=== PATIENT | male | born 1925 | race Caucasian/White ===

== ENCOUNTER 2016-11-13 14:15 | Inpatient (IN) | payer OTHER ==
[~2016-11-13] VITALS: Ht 162.6 cm; Wt 58.9 kg
--- NOTE | 2016-11-13 15:42 | DIAGNOSTIC IMAGING REPORT ---
CHEST ONE VIEW PORTABLE CLINICAL HISTORY: weakness dyspnea COMPARISON STUDY: None FINDINGS: Small parenchymal infiltrate right base. Prominent hilar fullness bilaterally most likely secondary to central pulmonary vasculature. Underlying emphysematous change. IMPRESSION: Emphysematous change. Small parenchymal infiltrate right base. Probable pulmonary hypertension. Electronically signed by: Farhat Coronado M.D. 11/13/2016 3:41 PM Dictated Date/Time: 11/13/2016 3:40 PM
[2016-11-13 15:50] LABS: BASO % 0.1 %; BASO ABS # 0.02 K/uL (0-0.2); COMPLETE YES; HEMATOCRIT 36.6 % (42-52); IG% 0.4 %; LYMPH % 6.5 %; LYMPH ABS # 1.16 K/uL (1.2-3.4); MEAN CELL VOLUME 90.6 fL (80-100); MEAN CORPUSCULAR HEMOGLOBIN 31.7 pg (25-34); MEAN PLATELET VOLUME 12.4 fL (7.4-10.4); MONO % 7.6 %; NEUT % 85.4 %; PLATELET COUNT 236 K/uL (130-400); RED BLOOD COUNT 4.04 M/uL (4.7-6.1); WHITE BLOOD COUNT 17.72 K/uL (4.8-10.8)
[2016-11-13] MEDS ORDERED: SODIUM CHLORIDE 0.9% 1000ML 2,000 ML IV ONE (16:00)
--- NOTE | 2016-11-13 16:00 | EMERGENCY ROOM VISIT NOTE ---
History Report prepared by Hector: Eric Godfrey Under the Supervision of: Dr. Ismael George M.D. First contact with patient: 15:37 Chief Complaint: WEAKNESS Stated Complaint: WEAK, BREATHING TROUBLE History of Present Illness The patient is an 89 year old male who presents to the Emergency Room with complaints of constant global weakness beginning several days prior to arrival. He associates a fever, productive cough, and a decreased appetite with today's symptoms. As per neighbors, the patient's sons wanted him to be brought into the ED for evaluation. The neighbors state they help take care of the patient along with other help at the patient's home. She states the patient has had difficulty wanting to eat the past several days. She notes the patient has been urinating and moving his bowels with the intake of a daily stool softener. The neighbor states the patient experienced a fever of 100.9 F earlier today. 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 Review of Systems All systems have been listed, reviewed, and are negative other than those previously mentioned. Please see Additional Medical History Sheet. Past Medical & Surgical Medical Problems: (1) Asthma (2) Bronchitis (3) Confusion (4) Pneumonia (5) Sepsis (6) Urinary problem Family History Patient reports no known family medical history. Social History Smoking Status: Never Smoker Alcohol Use: none Housing Status: lives alone Occupation Status: retired Current/Historical Medications Scheduled B-Complex W/ Folic Acid (Super B Complex Maxi), 1 TAB PO DAILY Budesonide/Formoterol Fumarate (Symbicort 160/4.5 Inhaler), 1 PUFF INH BID Cholecalciferol (Vitamin D 1000 Unit), 1,000 INTER.UNIT PO DAILY Docusate Sodium (Colace), 1 CAP PO QPM Fish Oil ([place]-3), 1 CAP PO DAILY Fluticasone Propionate (Fluticasone Propionate), 1 SPRAY GE DAILY Levothyroxine Sodium (Synthroid), 100 MCG PO DAILY Multivitamins/Minerals (Mvi With Minerals), 1 TAB PO DAILY Tamsulosin HCl (Tamsulosin HCl), 4 MG PO DAILY Theophylline Cont Rel (Uniphyl Controlled Rel), 400 MG PO BID Allergies Coded Allergies: Aspirin (Verified Allergy, Unknown, UNKNOWN, 11/13/16) Physical Exam Vital Signs Date Time Temp Pulse Resp B/P Pulse Ox O2 Delivery O2 Flow Rate FiO2 11/13/16 20:15 37.0 92 20 150/78 93 Nasal Cannula 2.0 11/13/16 19:58 106 26 137/108 94 Nasal Cannula 2.0 11/13/16 19:18 94 Nasal Cannula 2.0 11/13/16 19:00 89 Room Air 11/13/16 17:59 136/75 11/13/16 17:45 105 25 96 11/13/16 17:29 156/74 11/13/16 17:15 93 23 93 11/13/16 17:00 152/85 11/13/16 16:47 169/82 11/13/16 16:46 94 18 169/82 95 11/13/16 16:45 86 28 96 11/13/16 16:38 85 11/13/16 14:18 37.2 97 20 149/75 97 Room Air Physical Exam GENERAL: Patient awake, alert, oriented x 3. Patient follows commands. SKIN: No erythema, pallor, cyanosis or rash HEENT: Normal head, pupils equal, reactive to light and accommodation. Ears normal. Oral cavity has dentures in place and posterior pharynx appears normal. Neck: Without adenopathy, no neck vein distention. LUNGS: Clear to auscultation. No wheezes, no rales, no rhonchi. HEART: Muffled heart tones. No murmurs. No gallops. No rubs ABDOMEN: No masses, no rebound, no hepatomegaly or splenomegaly. EXTREMITIES: 2+ pitting pretibial edema. No signs of trauma. No calf or thigh tenderness. NEUROLOGIC: Cranial nerves II-XII within normal limits. No gross motor sensory function deficits. Medical Decision & Procedures ER Provider Diagnostic Interpretation: X ray results are stated below per my interpretation and the radiologist's interpretation. CHEST ONE VIEW PORTABLE CLINICAL HISTORY: weakness dyspnea COMPARISON STUDY: None FINDINGS: Small parenchymal infiltrate right base. Prominent hilar fullness bilaterally most likely secondary to central pulmonary vasculature. Underlying emphysematous change. IMPRESSION: Emphysematous change. Small parenchymal infiltrate right base. Probable pulmonary hypertension. Electronically signed by: Farhat Coronado M.D. 11/13/2016 3:41 PM Laboratory Results 2/23/17 15:35 Red Blood Count 4.04, Mean Corpuscular Volume 90.6, Mean Corpuscular Hemoglobin 31.7, Mean Corpuscular Hemoglobin Concent 35.0, Mean Platelet Volume 12.4, Neutrophils (%) (Auto) 85.4, Lymphocytes (%) (Auto) 6.5, Monocytes (%) (Auto) 7.6, Eosinophils (%) (Auto) 0.0, Basophils (%) (Auto) 0.1, Neutrophils # (Auto) 15.12, Lymphocytes # (Auto) 1.16, Monocytes # (Auto) 1.35, Eosinophils # (Auto) 0.00, Basophils # (Auto) 0.02 11/13/16 15:35 Test 11/13/16 15:35 11/13/16 16:25 White Blood Count 17.72 K/uL (4.8-10.8) Red Blood Count 4.04 M/uL (4.7-6.1) Hemoglobin 12.8 g/dL (14.0-18.0) Hematocrit 36.6 % (42-52) Mean Corpuscular Volume 90.6 fL (80-100) Mean Corpuscular Hemoglobin 31.7 pg (25-34) Mean Corpuscular Hemoglobin Concent 35.0 g/dl (32-36) Platelet Count 236 K/uL (130-400) Mean Platelet Volume 12.4 fL (7.4-10.4) Neutrophils (%) (Auto) 85.4 % Lymphocytes (%) (Auto) 6.5 % Monocytes (%) (Auto) 7.6 % Eosinophils (%) (Auto) 0.0 % Basophils (%) (Auto) 0.1 % Neutrophils # (Auto) 15.12 K/uL (1.4-6.5) Lymphocytes # (Auto) 1.16 K/uL (1.2-3.4) Monocytes # (Auto) 1.35 K/uL (0.11-0.59) Eosinophils # (Auto) 0.00 K/uL (0-0.5) Basophils # (Auto) 0.02 K/uL (0-0.2) RDW Standard Deviation 46.7 fL (36.4-46.3) RDW Coefficient of Variation 14.0 % (11.5-14.5) Immature Granulocyte % (Auto) 0.4 % Immature Granulocyte # (Auto) 0.07 K/uL (0.00-0.02) Prothrombin Time 10.7 SECONDS (9.0-12.0) Prothromb Time International Ratio 1.0 (0.9-1.1) Activated Partial Thromboplast Time 34.4 SECONDS (21.0-31.0) Partial Thromboplastin Ratio 1.3 Anion Gap 11.0 mmol/L (3-11) Est Creatinine Clear Calc Drug Dose 49.4 ml/min Estimated GFR () 89.5 Estimated GFR (Non- 77.3 BUN/Creatinine Ratio 15.4 (10-20) Calcium Level 9.3 mg/dl (8.5-10.1) Total Bilirubin 1.2 mg/dl (0.2-1) Aspartate Amino Transf (AST/SGOT) 95 U/L (15-37) Alanine Aminotransferase (ALT/SGPT) 59 U/L (12-78) Alkaline Phosphatase 80 U/L (45-117) Total Creatine Kinase 35 U/L (39-308) Creatine Kinase MB 0.6 ng/ml (0.5-3.6) Creatine Kinase MB Ratio 1.7 (0-3.0) Troponin I 0.023 ng/ml (0-0.045) Total Protein 8.0 gm/dl (6.4-8.2) Albumin 3.0 gm/dl (3.4-5.0) Globulin 5.0 gm/dl (2.5-4.0) Albumin/Globulin Ratio 0.6 (0.9-2) Thyroid Stimulating Hormone (TSH) 4.940 uIu/ml (0.300-4.500) Bedside Lactic Acid Venous 1.28 mmol/L (0.90-1.70) Date/Time Source Procedure Growth Status 11/13/16 20:15 Nasal MRSA DNA Surveillance Screen - Final Specimen Negative for MRSA by DNA Probe Complete Laboratory results as stated above per my review. Medications Administered Medications (Trade) Dose Ordered Sig/Raciel Route Start Time Stop Time Status Last Admin Dose Admin Sodium Chloride (Nss 1000ml) 2,000 ml @ 1,000 mls/hr Q2H ONCE IV 11/13/16 16:00 11/13/16 17:59 DC 11/13/16 16:40 1,000 MLS/HR Levofloxacin (Levaquin / D5W) 750 mg NOW ONCE IV 11/13/16 16:15 11/13/16 16:16 DC 11/13/16 16:42 750 MG Piperacillin Sod/ Tazobactam Sod (Zosyn Iv) 4.5 gm NOW STAT IV 11/13/16 16:44 11/13/16 16:45 DC 11/13/16 16:49 4.5 GM Albuterol/ Ipratropium (Duoneb) 3 ml QIDR INH 11/13/16 20:00 12/13/16 19:59 11/13/16 21:00 3 ML ECG Indication: weakness Rate (beats per minute): 100 Rhythm: sinus rhythm Findings: PAC, no acute ischemic change, other (normal axis) ED Course 1553: Past medical records reviewed. The patient was evaluated in room A5. A complete history and physical examination was performed. 1600: Ordered Sodium Chloride 2,000 ml @ 1,000 mls/hr IV. 1602: Ordered Rocephin Inj 1 gm IV. 1615: Ordered Levofloxacin 750 mg IV. 1644: Ordered Zosyn Iv 4.5 gm IV. 1645: I spoke to LARISSA Hinton (Hospitalist) about the patient's case, and he will follow the patient for further evaluation. Medical Decision Nurses notes reviewed. Medical history sheet reviewed. Differential diagnosis includes but is not limited to: pneumonia, congestive heart failure, sepsis, neoplastic disease. Multiple labs, EKG and imaging were obtained. Please see above. The patient has right lower lobe infiltrate. White count is elevated. Lactic acid is not elevated the patient was started on high dose fluids for presumed sepsis. The patient was given IV antibiotics following blood cultures. The patient will obviously require further evaluation in the hospital. I discussed care with the patient, friends and the hospitalist. Consults Time Called: 1642 Consulting Physician: LARISSA Hinton (Hospitalist) Returned Call: 1644 I spoke to LARISSA Hinton (Hospitalist) about the patient's case, and he will follow the patient for further evaluation. Impression Primary Impression: Pneumonia Additional Impression: Hypokalemia Scribe Attestation The scribe's documentation has been prepared under my direction and personally reviewed by me in its entirety. I confirm that the note above accurately reflects all work, treatment, procedures, and medical decision making performed by me. Departure Information Dispostion Being Evaluated By Hospitalist (Dr. Licona, [facility] [place] (Hospitalist)) Referrals No Doctor, Assigned (PCP) Problem Qualifiers
[2016-11-13] MEDS ORDERED: CEFTRIAXONE SOD INJ 1 GM ADDVIAL IV STA (16:02)
[2016-11-13 16:07] LABS: BUN/CREATININE RATIO 15.4 (10-20); CALCIUM 9.3 mg/dl (8.5-10.1); CREATININE 0.85 mg/dl (0.60-1.40); POTASSIUM 3.2 mmol/L (3.5-5.1)
[2016-11-13] MEDS ORDERED: LEVAQUIN 750MG / 150ML D5W IV ONE (16:15)
[2016-11-13 16:17] LABS: ALB/GLOB RATIO 0.6 (0.9-2); CKMB/CK RATIO 1.7 (0-3.0); THYROID STIMULATING HORMONE 4.94 uIu/ml (0.300-4.500)
[2016-11-13] MEDS ORDERED: PIPERACILLIN/TAZOBACTAM 4.5 GM/100ML D5W IV STA (16:44)
[2016-11-13] MEDS ORDERED: FLNIN/ NAE (16:52)
[2016-11-13] MEDS ORDERED: FLM4 PO (16:52)
[2016-11-13] MEDS ORDERED: SYN100 PO (16:52)
[2016-11-13] MEDS ORDERED: THEO400T9 PO (16:52)
[2016-11-13] MEDS ORDERED: MULT-513 PO (16:53)
[2016-11-13] MEDS ORDERED: DOCU-94 PO (16:53)
[2016-11-13] MEDS ORDERED: CHOL100027 PO (16:53)
[2016-11-13] MEDS ORDERED: OMEG10007 PO (16:53)
[2016-11-13] MEDS ORDERED: B-CO-25 PO (16:53)
[2016-11-13] MEDS ORDERED: SYMIN160 INH (16:53)
--- NOTE | 2016-11-13 16:57 | History and Physical ---
History & Physical Date & Time of Service: Nov 13, 2016 at 16:54 Chief Complaint: Weak, Breathing Trouble Primary Care Physician: Allen Mcbride History of Present Illness Source: patient 89M with a PMHx of Asthma, Pneumonia, BPH presents to the ER for a 3 day history of lethargy and confusion. Patient was brought in by his neighbors who check on him several times per day, pt normally lives by himself. Neighbors are present at bedside and state that the pt has been getting more confused over the past 3 days. Patients gets twice daily home care. In the exam room the patient was unable to identify the correct city, year, name of the hospital or his birthday. Pt complained of generalized weakness and cough. Denies being in any pain. Thinks he is in the hospital, cannot name the hospital, is here to "get better", ROS: Denies fever, denies SOB, denies chest pain, denies increased urinary frequency. Allergies: Aspirin Meds: Brought in with a list, pt also take a Cranberry juice mixture that according to him helps keep his asthma under control. SHx: Lives by himself, two daughters in [facility], and 2 sons, one in [place]. Past Medical/Surgical History Medical Problems: (1) Asthma Status: Chronic (2) Bronchitis Status: Resolved (3) Pneumonia Status: Resolved (4) Urinary problem Status: Chronic Social History Smoking Status: Never Smoker Occupational Status: retired Allergies Coded Allergies: Aspirin (Verified Allergy, Unknown, UNKNOWN, 11/13/16) Home Medications Scheduled B-Complex W/ Folic Acid (Super B Complex Maxi), 1 TAB PO DAILY Budesonide/Formoterol Fumarate (Symbicort 160/4.5 Inhaler), 1 PUFF INH BID Cholecalciferol (Vitamin D 1000 Unit), 1,000 INTER.UNIT PO DAILY Docusate Sodium (Colace), 1 CAP PO QPM Fish Oil ([place]-3), 1 CAP PO DAILY Fluticasone Propionate (Fluticasone Propionate), 1 SPRAY GE DAILY Levothyroxine Sodium (Synthroid), 100 MCG PO DAILY Multivitamins/Minerals (Mvi With Minerals), 1 TAB PO DAILY Tamsulosin HCl (Tamsulosin HCl), 4 MG PO DAILY Theophylline Cont Rel (Uniphyl Controlled Rel), 400 MG PO BID Physical Exam Vital Signs Date Time Temp Pulse Resp B/P Pulse Ox O2 Delivery O2 Flow Rate FiO2 11/13/16 16:46 94 18 169/82 95 11/13/16 16:38 85 11/13/16 14:18 37.2 97 20 149/75 97 Room Air General Appearance: WD/WN, no apparent distress Head: normocephalic Eyes: normal inspection Neck: supple Respiratory/Chest: chest non-tender, lungs clear, normal breath sounds, + pertinent finding (slight crackles over posterior lung fitzgerald, no wheezing) Cardiovascular: regular rate, rhythm, no edema, no gallop, no JVD, no murmur Abdomen/GI: normal bowel sounds, non tender, soft, + pertinent finding (scar on midline of abdomen) Back: no CVA tenderness Extremities/Musculoskelatal: normal inspection, no calf tenderness, normal capillary refill Neurologic/Psych: alert, normal mood/affect, normal reflexes, + pertinent finding (Patient is not oriented to time (year), or place. Is oriented to person, but not his birthday. Pt cannot remmeber who the president is. ) Skin: warm/dry, no rash Diagnostics Laboratory Results Results Past 24 Hours Test 11/13/16 15:35 11/13/16 16:25 Range/Units White Blood Count 17.72 4.8-10.8 K/uL Red Blood Count 4.04 4.7-6.1 M/uL Hemoglobin 12.8 14.0-18.0 g/dL Hematocrit 36.6 42-52 % Mean Corpuscular Volume 90.6 80-100 fL Mean Corpuscular Hemoglobin 31.7 25-34 pg Mean Corpuscular Hemoglobin Concent 35.0 32-36 g/dl Platelet Count 236 130-400 K/uL Mean Platelet Volume 12.4 7.4-10.4 fL Neutrophils (%) (Auto) 85.4 % Lymphocytes (%) (Auto) 6.5 % Monocytes (%) (Auto) 7.6 % Eosinophils (%) (Auto) 0.0 % Basophils (%) (Auto) 0.1 % Neutrophils # (Auto) 15.12 1.4-6.5 K/uL Lymphocytes # (Auto) 1.16 1.2-3.4 K/uL Monocytes # (Auto) 1.35 0.11-0.59 K/uL Eosinophils # (Auto) 0.00 0-0.5 K/uL Basophils # (Auto) 0.02 0-0.2 K/uL RDW Standard Deviation 46.7 36.4-46.3 fL RDW Coefficient of Variation 14.0 11.5-14.5 % Immature Granulocyte % (Auto) 0.4 % Immature Granulocyte # (Auto) 0.07 0.00-0.02 K/uL Sodium Level 136 136-145 mmol/L Potassium Level 3.2 3.5-5.1 mmol/L Chloride Level 100 98-107 mmol/L Carbon Dioxide Level 25 21-32 mmol/L Anion Gap 11.0 3-11 mmol/L Blood Urea Nitrogen 13 7-18 mg/dl Creatinine 0.85 0.60-1.40 mg/dl Est Creatinine Clear Calc Drug Dose 49.4 ml/min Estimated GFR () 89.5 Estimated GFR (Non- 77.3 BUN/Creatinine Ratio 15.4 10-20 Random Glucose 119 70-99 mg/dl Calcium Level 9.3 8.5-10.1 mg/dl Total Bilirubin 1.2 0.2-1 mg/dl Aspartate Amino Transf (AST/SGOT) 95 15-37 U/L Alanine Aminotransferase (ALT/SGPT) 59 12-78 U/L Alkaline Phosphatase 80 45-117 U/L Total Creatine Kinase 35 39-308 U/L Creatine Kinase MB 0.6 0.5-3.6 ng/ml Creatine Kinase MB Ratio 1.7 0-3.0 Troponin I 0.023 0-0.045 ng/ml Total Protein 8.0 6.4-8.2 gm/dl Albumin 3.0 3.4-5.0 gm/dl Globulin 5.0 2.5-4.0 gm/dl Albumin/Globulin Ratio 0.6 0.9-2 Thyroid Stimulating Hormone (TSH) 4.940 0.300-4.500 uIu/ml Bedside Lactic Acid Venous 1.28 0.90-1.70 mmol/L Microbiology Results 11/13/16 Blood Culture, Received Pending 11/13/16 Blood Culture, Received Pending Diagnostic Radiology CHEST ONE VIEW PORTABLE CLINICAL HISTORY: weakness dyspnea COMPARISON STUDY: None FINDINGS: Small parenchymal infiltrate right base. Prominent hilar fullness bilaterally most likely secondary to central pulmonary vasculature. Underlying emphysematous change. IMPRESSION: Emphysematous change. Small parenchymal infiltrate right base. Probable pulmonary hypertension. Impression Assessment and Plan 89M with a PMHx of bronchitis, pneumonia, hematuria was brought in by his neighbors for a 3 day history of lethargy and weakness. Patient is likely septic on admission with AMS and elevated WBC. Patient is confused - cannot name city, hospital name or year. Lactic Acid is WNL, will repeat x 2. Possible sepsis from Pneumonia r/o UTI - Pt has a history of Asthma and Pneumonia. O2 sats in the high 80s-low 90s at bedside. - Check UA stat. - Blood cultures Pending - Abx: Zosyn and Azithromycin IV - Repeat Lactic Acid x 2, CBC and BMP tomorrow + Mg. - NSS + 20meq KCL @ 100mls/hr - Respiratory: Duonebs and Symbacort, and O2 per protocol. Low Potassium (3.2) - NSS + 20meq KCL @ 100mls/hr + 20meq KCL once. Continue to monitor. Hypothyroid - TSH elevated, may be sick euthyroid syndrome. - c/w Levo 100mcg daily. - Recheck as outpatient. BPH: Continue with Tamsulosin 0.4mg QAM. Unable to assess if patient can urinate on his own, pt states he is able to ambulate to bathroom. Consider loza. DVT Proph: Lovenox SQ daily. Dispo: Med Surg, son is driving up from [place], will be here Thursday, Regular Diet, FULL CODE Resident Physician Supervision Note: I interviewed and examined the patient. Discussed with Dr. Licona and agree with findings and plan as documented in the note. Any exceptions or clarifications are listed here: None Documented By: Darnell Chase confused. denies any complaints. after d/w R1, caregiver/neighbors are able to give me a little more information about baseline - baseline is some dementia - but not bad - able to care for self with them helping some and looking after himself - but doesn't forget meals, doesn't wander off, lives alone with help. shoveling snow 2wks ago - give a picture of ?mild dementia - note that this current state is way off from baseline vitals noted, bibasilar rales, diminished air entry bases. upper clear. no edema CXR noted labs noted confusion - appearing to be likely septic encephalopathy superimposed on baseline ?mild dementia -- encephalopathy due to community acquired pneumonia -zithromax rocephin, supportive care -PT/OT - discussed current situation w caregivers and explained that deliriums rarely improve in line with the inciting illness - that he's quite likely to need time at SNF or rehab prior to being able to get back home elevated TSH -outpt f/u otherwise as above Resident Involvement: Resident Care Provided Care Provided: Adult Hospital Medicine
[2016-11-13] MEDS ORDERED: ACETAMINOPHEN 325 MG TAB PO PRN (17:30)
[2016-11-13] MEDS ORDERED: MAGNESIUM HYDROXIDE SUSP 30 ML UDC PO PRN (17:30)
[2016-11-13] MEDS ORDERED: ONDANSETRON INJ 2 MG/ML 2 ML VIAL IV PRN (17:30)
[2016-11-13] MEDS ORDERED: ALUMINUM/MAGNESIUM/SIMETH (MAALOX MAX) 30 ML UDC PO PRN (17:30)
[2016-11-13] MEDS ORDERED: ALBUT/IPRATROP 3MG/0.5MG NEB 3 ML VIAL INH PRN (17:30)
[2016-11-13 20:15] VITALS: BP 150/78; PULSE 92; TEMP 37; O2SAT 93; Ht 162.6 cm; Wt 58.9 kg
[2016-11-13] MEDS ORDERED: AMPICILLIN/SULBACTAM SOD INJ 3,000 MG in SODIUM CHLORIDE 0.9% 100ML 100 ML IV SCH (21:00)
[2016-11-13] MEDS: ALBUT/IPRATROP 3MG/0.5MG NEB 3 ML VIAL INH SCH (21:00)
[2016-11-13] MEDS ORDERED: POTASSIUM CHLORIDE 10 MEQ TABCR PO ONE (21:00)
[2016-11-13 21:11] VITALS: PULSE 66; O2SAT 93
[2016-11-13 21:45] LABS: PARTIAL THROMBOPLASTIN RATIO 1.3; PROTHROMBIN TIME (PATIENT) 10.7 SECONDS (9.0-12.0)
[2016-11-13] MEDS: NSS + 20MEQ KCL 1000ML 1,000 ML IV SCH (21:47)
[2016-11-13] MEDS: THEOPHYLLINE 400MG CONTROLLED REL TAB PO SCH (21:48)
[2016-11-13] MEDS: DOCUSATE SODIUM 100 MG CAP PO SCH (21:48)
[2016-11-13] MEDS: BUDESONIDE/FORMOTEROL FUMARATE 160/4.5 60 PUFFS/INHALER INH SCH (21:48)
[2016-11-13] MEDS: ENOXAPARIN 30 MG/0.3 ML SYR SQ SCH (22:58)
[2016-11-13] MEDS: AZITHROMYCIN IV 500 MG in DEXTROSE 5% 250ML 250 ML IV SCH (22:58)
[2016-11-13 23:08] LABS: URINE APPEARANCE CLEAR (CLEAR); URINE BILIRUBIN NEG (NEG); URINE COLOR YELLOW; URINE NITRITE NEG (NEG); URINE PH 6.5 (4.5-7.5); URINE SPECIFIC GRAVITY 1.016 (1.000-1.030); UROBILINOGEN NEG (NEG); ZZUR CULT IF INDIC CLEAN CATCH NO
[2016-11-13 23:10] LABS: MANUAL MICROSCOPIC REQUIRED? NO; REVIEW REQ? NO
[2016-11-14] VITALS (9 sets, daily range): BP systolic 126–151; BP diastolic 66–78; PULSE 81–106; TEMP 36.4–36.9; O2SAT 92–98
[2016-11-14] MEDS: CEFTRIAXONE SOD INJ 1,000 MG in DEXTROSE 5% 50ML 50 ML IV SCH ×2 (00:42→23:50)
[2016-11-14] MEDS: LEVOTHYROXINE 100 MCG TAB PO SCH (05:52)
[2016-11-14 06:13] LABS: HEMATOCRIT 34.7 % (42-52); MEAN CELL VOLUME 92.3 fL (80-100); MEAN CORPUSCULAR HEMOGLOBIN 31.4 pg (25-34); MEAN PLATELET VOLUME 11.9 fL (7.4-10.4); PLATELET COUNT 215 K/uL (130-400); RED BLOOD COUNT 3.76 M/uL (4.7-6.1); WHITE BLOOD COUNT 15.68 K/uL (4.8-10.8)
[2016-11-14 06:50] LABS: BUN/CREATININE RATIO 11.8 (10-20); CALCIUM 8.1 mg/dl (8.5-10.1); CREATININE 0.61 mg/dl (0.60-1.40); POTASSIUM 2.9 mmol/L (3.5-5.1)
[2016-11-14 06:54] LABS: ALB/GLOB RATIO 0.6 (0.9-2)
[2016-11-14] MEDS: ALBUT/IPRATROP 3MG/0.5MG NEB 3 ML VIAL INH SCH ×4 (07:23→20:00)
[2016-11-14] MEDS: NSS + 20MEQ KCL 1000ML 1,000 ML IV SCH (07:58)
[2016-11-14] MEDS ORDERED: POTASSIUM CHLORIDE 10 MEQ TABCR PO ONE (08:00)
--- NOTE | 2016-11-14 08:05 | Hospitalist Progress Note ---
Hospitalist Progress Note Date of Service Nov 14, 2016. (Manda Dunham PA-C) Subjective Pt evaluation today including: conversation w/ patient, conversation w/ family , physical exam, chart review, lab review, review of studies, review of inpatient medication list PO Intake: Good Voiding: loza catheter in place The patient was seen and examined this morning. His son is present at bedside today. The patient reports he feels ok this morning, eating breakfast at bedside. He denies any acute or new complaints. Pt notes chronic runny nose and mild lower abdominal pain but that this is not new and he is not concerned with it. He denies fever, chills, sweats, cp, sob, diarrhea, last BM was yesterday, no dysuria or hematuria. Pt son provides large amount of information this morning. States he is concerned the patient has a bit of sundowning, with frequently up at night walking/roaming his house (as he's noticed this when stays there overnight). The patient lives at home alone, has 3.5 workers during the day on separate shifts, but doesn't have caregivers with him overnight,. He ambulates without assistance, and normally doesn't need supplemental O2. All Other Systems: Reviewed and Negative (other than listed above. ) (Manda Dunham, RAMON) Objective Vital Signs Date Time Temp Pulse Resp B/P Pulse Ox O2 Delivery O2 Flow Rate FiO2 11/14/16 07:37 36.4 86 16 151/76 94 11/14/16 07:25 81 16 96 Room Air 11/14/16 00:00 36.5 95 18 132/78 92 Room Air 11/13/16 21:11 66 16 93 Nasal Cannula 2.0 11/13/16 20:15 37.0 92 20 150/78 93 Nasal Cannula 2.0 11/13/16 19:58 106 26 137/108 94 Nasal Cannula 2.0 11/13/16 19:18 94 Nasal Cannula 2.0 11/13/16 19:00 89 Room Air 11/13/16 17:59 136/75 11/13/16 17:45 105 25 96 11/13/16 17:29 156/74 11/13/16 17:15 93 23 93 11/13/16 17:00 152/85 11/13/16 16:47 169/82 11/13/16 16:46 94 18 169/82 95 11/13/16 16:45 86 28 96 11/13/16 16:38 85 11/13/16 14:18 37.2 97 20 149/75 97 Room Air (Manda Dunham PA-C) Physical Exam General Appearance: WD/WN, no apparent distress, + thin, + pertinent finding ( sitting up eating breakfast without difficulty) Eyes: PERRL, EOMI ENT: hearing grossly normal, pharynx normal Neck: supple, no JVD Respiratory/Chest: normal breath sounds, no respiratory distress, no accessory muscle use, + pertinent finding (no crackles or wheezing) Cardiovascular: regular rate, rhythm, no murmur Abdomen: normal bowel sounds, soft, + pertinent finding (+ mild tenderness in the LLQ with deep palpation.) Extremities: non-tender, + pedal edema, + pertinent finding (+ multiple excoriations present over bilateral LE) Neurologic/Psychiatric: alert, + pertinent finding (oriented to self, but not place or time.) Skin: normal color, warm/dry (Manda Dunham PA-C) Laboratory Results Last 24 Hours Test 11/13/16 15:35 11/13/16 16:25 11/13/16 20:40 11/13/16 22:00 White Blood Count 17.72 K/uL Red Blood Count 4.04 M/uL Hemoglobin 12.8 g/dL Hematocrit 36.6 % Mean Corpuscular Volume 90.6 fL Mean Corpuscular Hemoglobin 31.7 pg Mean Corpuscular Hemoglobin Concent 35.0 g/dl Platelet Count 236 K/uL Mean Platelet Volume 12.4 fL Neutrophils (%) (Auto) 85.4 % Lymphocytes (%) (Auto) 6.5 % Monocytes (%) (Auto) 7.6 % Eosinophils (%) (Auto) 0.0 % Basophils (%) (Auto) 0.1 % Neutrophils # (Auto) 15.12 K/uL Lymphocytes # (Auto) 1.16 K/uL Monocytes # (Auto) 1.35 K/uL Eosinophils # (Auto) 0.00 K/uL Basophils # (Auto) 0.02 K/uL RDW Standard Deviation 46.7 fL RDW Coefficient of Variation 14.0 % Immature Granulocyte % (Auto) 0.4 % Immature Granulocyte # (Auto) 0.07 K/uL Prothrombin Time 10.7 SECONDS Prothromb Time International Ratio 1.0 Activated Partial Thromboplast Time 34.4 SECONDS Partial Thromboplastin Ratio 1.3 Sodium Level 136 mmol/L Potassium Level 3.2 mmol/L Chloride Level 100 mmol/L Carbon Dioxide Level 25 mmol/L Anion Gap 11.0 mmol/L Blood Urea Nitrogen 13 mg/dl Creatinine 0.85 mg/dl Est Creatinine Clear Calc Drug Dose 49.4 ml/min Estimated GFR () 89.5 Estimated GFR (Non- 77.3 BUN/Creatinine Ratio 15.4 Random Glucose 119 mg/dl Calcium Level 9.3 mg/dl Total Bilirubin 1.2 mg/dl Aspartate Amino Transf (AST/SGOT) 95 U/L Alanine Aminotransferase (ALT/SGPT) 59 U/L Alkaline Phosphatase 80 U/L Total Creatine Kinase 35 U/L Creatine Kinase MB 0.6 ng/ml Creatine Kinase MB Ratio 1.7 Troponin I 0.023 ng/ml Total Protein 8.0 gm/dl Albumin 3.0 gm/dl Globulin 5.0 gm/dl Albumin/Globulin Ratio 0.6 Thyroid Stimulating Hormone (TSH) 4.940 uIu/ml Bedside Lactic Acid Venous 1.28 mmol/L Lactic Acid Level 0.9 mmol/L Urine Color YELLOW Urine Appearance CLEAR Urine pH 6.5 Urine Specific [place] 1.016 Urine Protein 1+ Urine Glucose (UA) NEG Urine Ketones NEG Urine Occult Blood NEG Urine Nitrite NEG Urine Bilirubin NEG Urine Urobilinogen NEG Urine Leukocyte Esterase NEG Urine WBC (Auto) 1-5 /hpf Urine RBC (Auto) 0-4 /hpf Urine Hyaline Casts (Auto) 1-5 /lpf Urine Epithelial Cells (Auto) 10-20 /lpf Urine Bacteria (Auto) NEG Test 11/14/16 06:06 White Blood Count 15.68 K/uL Red Blood Count 3.76 M/uL Hemoglobin 11.8 g/dL Hematocrit 34.7 % Mean Corpuscular Volume 92.3 fL Mean Corpuscular Hemoglobin 31.4 pg Mean Corpuscular Hemoglobin Concent 34.0 g/dl RDW Standard Deviation 46.9 fL RDW Coefficient of Variation 13.9 % Platelet Count 215 K/uL Mean Platelet Volume 11.9 fL Sodium Level 138 mmol/L Potassium Level 2.9 mmol/L Chloride Level 105 mmol/L Carbon Dioxide Level 25 mmol/L Anion Gap 8.0 mmol/L Blood Urea Nitrogen 7 mg/dl Creatinine 0.61 mg/dl Est Creatinine Clear Calc Drug Dose 68.4 ml/min Estimated GFR () 102.6 Estimated GFR (Non- 88.5 BUN/Creatinine Ratio 11.8 Random Glucose 91 mg/dl Lactic Acid Level 1.1 mmol/L Calcium Level 8.1 mg/dl Magnesium Level 2.0 mg/dl Total Bilirubin 1.2 mg/dl Aspartate Amino Transf (AST/SGOT) 102 U/L Alanine Aminotransferase (ALT/SGPT) 65 U/L Alkaline Phosphatase 64 U/L Total Protein 6.2 gm/dl Albumin 2.2 gm/dl Globulin 4.0 gm/dl Albumin/Globulin Ratio 0.6 Procalcitonin 0.18 ng/mL (Manda Dunham, RAMON) Assessment and Plan 89M with a PMHx of bronchitis, pneumonia, hematuria was brought in by his neighbors for a 3 day history of lethargy and weakness. Patient is likely mets SIRS criteria with elevated WBC and altered mental status on admission. Septic Encephalopathy, unknown source - Pt has a history of COPD/emphysema, asthma and pneumonia. O2 sats in the high 80s-low 90s at bedside. - UA appears clear, will await cultures but is unlikely urinary source. - CXR: Small parenchymal infiltrate right base. Prominent hilar fullness bilaterally most likely secondary to central pulmonary vasculature. Underlying emphysematous change. Probable Pulm HTN. Would consider getting a chest CT if worsening symptoms, at least have CT as follow up as outpatient. - Will stop fluids as pt is tolerating oral find, has pedal edema and pulmonary HTN on CXR showing some volume overload. - Blood cultures Pending - Continue zithromax and rocephin for now - LA trended downward - WBC down to 15 K from 17K - Respiratory: Duonebs and Symbacort, and O2 per protocol. Dementia, severity unspecified - Discussion with son held extensively regarding dementia - This has been ongoing for past 2 years and worsening recently. Pt has been up in the middle of the night and walking about his home. Son is concerned of sun downing which is certainly a possibility. Pt was seen by his PCP last thursday and had a normal physical per the son. - Son is not very interested in placing his father in a SNF or assisted living currently. Will ask CM to assist with conversation to get overnight caregivers at least. Hypokalemia - K+ 2.9 this morning - will replace this orally with 40 meq now, and another dose later today. - Follow with am labs Hypothyroidism - TSH elevated, may be sick euthyroid syndrome. - c/w Levo 100mcg daily. - Recheck as outpatient. BPH: Continue with Tamsulosin 0.4mg QAM. Unable to assess if patient can urinate on his own, pt states he is able to ambulate to bathroom. DVT Ppx: Lovenox SQ daily CODE STATUS: FULL CODE Disposition: From home, lives alone, CM to assist with d/c planning. (Manda Dunham, RAMON) PA Physician Supervision Note: I interviewed and examined the patient. Discussed with Manda Dunham PAC and agree with findings and plan as documented in the note. Any exceptions or clarifications are listed here: None Pt here with pneumonia with COPD exacerbation vss I personally reviewed CXR and concern for changes and will need repeat follow up lungs with no focal loss, poor air movement throughout . Septic Encephalopathy,secondary to pneumonia. hypoxic respiratory failure O2 sats in the high 80s-low 90s at bedside. zithromax and rocephin copd exacerbation Duonebs and Symbacort, and O2 per protocol. Hypokalemia replete Hypothyroidism- TSH elevated, ? sick euthyroid syndrome. Levo 100mcg daily. BPH: stable Tamsulosin 0.4mg QAM. DVT Ppx: Lovenox SQ daily CODE STATUS: FULL CODE Disposition: From home, lives alone, CM to assist with d/c planning. Documented By: Tony Ewing (Tony Ewing M.D.)
[2016-11-14] MEDS: SODIUM CHLORIDE 0.9% 1000ML 1,000 ML IV SCH ×2 (08:31→18:05)
[2016-11-14] MEDS: TAMSULOSIN HCL 0.4 MG CAP PO SCH (08:48)
[2016-11-14] MEDS: BUDESONIDE/FORMOTEROL FUMARATE 160/4.5 60 PUFFS/INHALER INH SCH ×2 (08:48→21:20)
[2016-11-14] MEDS: CHOLECALCIFEROL 1000 INTER.UNIT TAB PO SCH (08:49)
[2016-11-14] MEDS: THEOPHYLLINE 400MG CONTROLLED REL TAB PO SCH ×2 (08:49→21:20)
[2016-11-14] MEDS: ENOXAPARIN 30 MG/0.3 ML SYR SQ SCH (11:48)
[2016-11-14] MEDS ORDERED: POTASSIUM CHLORIDE 20 MEQ TABCR PO ONE (12:00)
[2016-11-14] MEDS: AZITHROMYCIN IV 500 MG in DEXTROSE 5% 250ML 250 ML IV SCH (21:20)
[2016-11-14] MEDS: DOCUSATE SODIUM 100 MG CAP PO SCH (21:20)
[2016-11-14] MEDS: ENOXAPARIN 40 MG/0.4 ML SYR SQ SCH (21:21)
[2016-11-15] VITALS (7 sets, daily range): BP systolic 132–135; BP diastolic 76–77; PULSE 78–111; TEMP 36.8–37.2; O2SAT 93–97
[2016-11-15] MEDS: SODIUM CHLORIDE 0.9% 1000ML 1,000 ML IV SCH (04:09)
[2016-11-15] MEDS: LEVOTHYROXINE 100 MCG TAB PO SCH (06:07)
[2016-11-15] MEDS: ALBUT/IPRATROP 3MG/0.5MG NEB 3 ML VIAL INH SCH ×4 (07:19→20:44)
--- NOTE | 2016-11-15 08:07 | Progress Note ---
Subjective Date of Service: Nov 15, 2016. Subjective this pt is doing well, still some shortness of breath, cough Problem List Medical Problems: (1) Hypokalemia Status: Acute Review of Systems Constitutional: No chills, No fever, No weakness Respiratory: + cough, + dyspnea on exertion, + shortness of breath, No sputum Cardiac: No PND, No chest pain, No edema Abdomen: No nausea, No pain, No vomiting Musculoskeletal: No joint pain, No muscle pain Neurologic: No memory loss, No weakness Psychiatric: No anxiety, No depression symptoms Objective Vital Signs Date Time Temp Pulse Resp B/P Pulse Ox O2 Delivery O2 Flow Rate FiO2 11/15/16 07:46 36.8 93 18 132/77 97 Nasal Cannula 2.0 11/15/16 00:01 Nasal Cannula 2.0 11/14/16 23:35 36.9 100 20 132/66 98 Nasal Cannula 2.0 11/14/16 16:04 104 16 94 Room Air 11/14/16 16:00 Room Air 11/14/16 15:17 36.8 106 16 126/68 97 11/14/16 14:37 96 Room Air 11/14/16 11:02 81 16 96 Room Air Physical Exam General Appearance: WD/WN, + mild distress Neck: supple, no JVD Respiratory/Chest: + decreased breath sounds, + accessory muscle use, + rhonchi Cardiovascular: regular rate, rhythm, no murmur Abdomen: normal bowel sounds, non tender, soft Extremities: no pedal edema, no calf tenderness Neurologic/Psychiatric: alert, + disoriented Laboratory Results Last 24 Hours Test 11/15/16 04:44 Assessment and Plan 89 M with history of copd presents with acute on chronic respiratory failure and pneumonia I personally reviewed labs and vital signs 10/15, potassium remians low will add potassium to ivf Metabolic Encephalopathy,secondary to pneumonia. acute hypoxic respiratory failure O2 sats in the high 80s-low 90s at bedside. Improving with treatment zithromax and rocephin cxr may be worrisome for additional disease, consider CT due to abnormal cxr appearance copd exacerbation not currently in distress , Duonebs and Symbacort, and O2 per protocol. Hypokalemia still low add k to ivf Hypothyroidism- TSH elevated, likely sick euthyroid syndrome. Levo 100mcg daily. BPH: remains stable Tamsulosin 0.4mg QAM. DVT Ppx: Lovenox SQ daily CODE STATUS: FULL CODE Disposition: From home, lives alone, CM to assist with d/c planning. Documented By: Tony Ewing
[2016-11-15] MEDS: TAMSULOSIN HCL 0.4 MG CAP PO SCH (08:22)
[2016-11-15] MEDS: BUDESONIDE/FORMOTEROL FUMARATE 160/4.5 60 PUFFS/INHALER INH SCH ×2 (08:22→20:25)
[2016-11-15] MEDS: THEOPHYLLINE 400MG CONTROLLED REL TAB PO SCH ×2 (08:23→20:26)
[2016-11-15] MEDS: CHOLECALCIFEROL 1000 INTER.UNIT TAB PO SCH (08:23)
[2016-11-15 08:48] LABS: HEMATOCRIT 32.4 % (42-52); MEAN CELL VOLUME 91.8 fL (80-100); MEAN CORPUSCULAR HEMOGLOBIN 31.4 pg (25-34); MEAN CORPUSCULAR HGB CONC 34.3 g/dl (32-36); MEAN PLATELET VOLUME 12.4 fL (7.4-10.4); PLATELET COUNT 256 K/uL (130-400); RED BLOOD COUNT 3.53 M/uL (4.7-6.1); WHITE BLOOD COUNT 15.54 K/uL (4.8-10.8)
[2016-11-15 12:37] LABS: CALCIUM 8.2 mg/dl (8.5-10.1); CREATININE 0.61 mg/dl (0.60-1.40); POTASSIUM 3.2 mmol/L (3.5-5.1)
--- NOTE | 2016-11-15 16:33 | DIAGNOSTIC IMAGING REPORT ---
CT OF THE CHEST WITHOUT IV CONTRAST CLINICAL HISTORY: Emphysema. Shortness of breath. Abnormal chest x-ray. COMPARISON STUDY: Chest x-ray dated 11/13/2016 CT DOSE: 388.89 mGy.cm TECHNIQUE: CT of the thorax was performed from the thoracic inlet to the lung bases. Images are reviewed in the axial, sagittal, and coronal planes. IV contrast was not administered for this examination. FINDINGS: Thyroid: Imaged portions of the thyroid gland are normal in appearance. Thoracic aorta: The thoracic aorta is normal in course and caliber, noting standard 3 vessel arch anatomy. Heart: There are coronary artery calcifications present. Lungs and pleural spaces: There are bilateral pleural effusions. There are nodular airspace opacities within the left upper lobe. There are right lower lobe airspace opacities. The findings are consistent with a bilateral pneumonitis. There is narrowing of the right bronchus intermedius and there is surrounding soft tissue. Is unclear whether this is inflammatory or neoplastic. Mediastinum: There is a mildly enlarged precarinal lymph node. There is subcarinal adenopathy. Mamta: Evaluation the hilar structures is limited given the lack of intravenous contrast. There is a possible right hilar mass. Axilla: Clear. Upper abdomen: There is a nonobstructing left renal calculus. Bilateral renal hypodensities likely represent cysts. Skeletal structures: There is a T1 compression fracture, likely old. IMPRESSION: 1. Bilateral pulmonary airspace opacities consistent with a bilateral pneumonia 2. Bilateral pleural effusions left greater than right 3. Mediastinal lymphadenopathy 4. Right hilar mass with narrowing of the bronchus intermedius. It is unclear whether this is inflammatory or neoplastic. A CT scan subsequent to antibiotic therapy, or referral for endoscopic bronchoscopy is recommended. 5. Nonobstructing left renal calculus Electronically signed by: Enrrique Modi M.D. 11/15/2016 4:31 PM Dictated Date/Time: 11/15/2016 4:25 PM
[2016-11-15] MEDS: POTASSIUM CHLORIDE INJ 40 MEQ in SODIUM CHLORIDE 0.9% 1000ML 1,000 ML IV SCH (16:36)
[2016-11-15] MEDS: DOCUSATE SODIUM 100 MG CAP PO SCH (20:29)
[2016-11-15] MEDS: AZITHROMYCIN IV 500 MG in DEXTROSE 5% 250ML 250 ML IV SCH (21:38)
[2016-11-15] MEDS: ENOXAPARIN 40 MG/0.4 ML SYR SQ SCH (21:38)
[2016-11-15] MEDS: CEFTRIAXONE SOD INJ 1,000 MG in DEXTROSE 5% 50ML 50 ML IV SCH (23:32)
[2016-11-16 00:02] VITALS: BP 121/83; PULSE 78; TEMP 36.6; O2SAT 93
[2016-11-16] MEDS: POTASSIUM CHLORIDE INJ 40 MEQ in SODIUM CHLORIDE 0.9% 1000ML 1,000 ML IV SCH ×2 (02:12→14:41)
[2016-11-16] MEDS: LEVOTHYROXINE 100 MCG TAB PO SCH (05:48)
[2016-11-16] MEDS: CHOLECALCIFEROL 1000 INTER.UNIT TAB PO SCH (07:47)
[2016-11-16] MEDS: BUDESONIDE/FORMOTEROL FUMARATE 160/4.5 60 PUFFS/INHALER INH SCH ×2 (07:47→19:37)
[2016-11-16] MEDS: THEOPHYLLINE 400MG CONTROLLED REL TAB PO SCH ×2 (07:47→19:37)
[2016-11-16] MEDS: TAMSULOSIN HCL 0.4 MG CAP PO SCH (07:47)
[2016-11-16 07:56] VITALS: PULSE 99; O2SAT 94
[2016-11-16] MEDS: ALBUT/IPRATROP 3MG/0.5MG NEB 3 ML VIAL INH SCH ×2 (07:56→11:31)
--- NOTE | 2016-11-16 07:59 | Progress Note ---
Subjective Date of Service: Nov 16, 2016. Subjective pt looks improved no longer requiring oxygen, son at bedside Problem List Medical Problems: (1) Hypokalemia Status: Acute Review of Systems Constitutional: No chills, No fever Respiratory: + dyspnea on exertion, + shortness of breath, No cough Cardiac: No PND, No chest pain, No edema Abdomen: No nausea, No pain, No vomiting Male : No dysuria, No urinary frequency Objective Vital Signs Date Time Temp Pulse Resp B/P Pulse Ox O2 Delivery O2 Flow Rate FiO2 11/16/16 00:02 36.6 78 20 121/83 93 Room Air 11/16/16 00:01 Room Air 11/15/16 20:47 90 16 96 Room Air 11/15/16 16:10 Room Air 11/15/16 15:39 111 16 93 Room Air 11/15/16 15:26 37.2 103 18 135/76 93 Room Air 11/15/16 11:08 86 16 96 Room Air 11/15/16 08:00 97 Nasal Cannula 2.0 Physical Exam General Appearance: WD/WN, + mild distress Neck: supple, no JVD Respiratory/Chest: chest non-tender, + decreased breath sounds, + accessory muscle use, + rhonchi Cardiovascular: regular rate, rhythm, + systolic murmur Abdomen: normal bowel sounds, non tender, soft Extremities: no pedal edema, no calf tenderness Laboratory Results Last 24 Hours Test 11/15/16 08:15 11/15/16 11:55 11/16/16 04:44 White Blood Count 15.54 K/uL Red Blood Count 3.53 M/uL Hemoglobin 11.1 g/dL Hematocrit 32.4 % Mean Corpuscular Volume 91.8 fL Mean Corpuscular Hemoglobin 31.4 pg Mean Corpuscular Hemoglobin Concent 34.3 g/dl RDW Standard Deviation 47.1 fL RDW Coefficient of Variation 14.1 % Platelet Count 256 K/uL Mean Platelet Volume 12.4 fL Sodium Level 140 mmol/L Potassium Level 3.2 mmol/L Chloride Level 105 mmol/L Carbon Dioxide Level 26 mmol/L Anion Gap 9.0 mmol/L Blood Urea Nitrogen 8 mg/dl Creatinine 0.61 mg/dl Est Creatinine Clear Calc Drug Dose 68.4 ml/min Estimated GFR () 102.6 Estimated GFR (Non- 88.5 BUN/Creatinine Ratio 13.0 Random Glucose 94 mg/dl Calcium Level 8.2 mg/dl Assessment and Plan 89 M with history of copd presents with acute on chronic respiratory failure and pneumonia, suspicious for mass I personally reviewed labs and vital signs 10/16, I also reveiwed CT chest worry some for possible mass with some narrowing of right bronchus intermedius, but I also see changes on left Metabolic Encephalopathy,secondary to pneumonia. acute hypoxic respiratory failure O2 sats now above 90% on room air zithromax and rocephin, given age and dementia will treat with antibiotics and repeat CT chest in short interval copd exacerbation not currently in distress , Duonebs and Symbacort, and O2 per protocol. Hypokalemia Hypothyroidism- TSH elevated, likely sick euthyroid syndrome. Levo 100mcg daily. BPH: remains stable Tamsulosin 0.4mg QAM. DVT Ppx: Lovenox SQ daily CODE STATUS: FULL CODE Disposition: From home, lives alone, CM to assist with d/c planning. Documented By: Tony Ewing
[2016-11-16 08:00] VITALS: O2SAT 94
[2016-11-16 08:05] LABS: HEMATOCRIT 33.9 % (42-52); MEAN CELL VOLUME 92.1 fL (80-100); MEAN CORPUSCULAR HEMOGLOBIN 32.1 pg (25-34); MEAN CORPUSCULAR HGB CONC 34.8 g/dl (32-36); MEAN PLATELET VOLUME 11.9 fL (7.4-10.4); PLATELET COUNT 324 K/uL (130-400); RED BLOOD COUNT 3.68 M/uL (4.7-6.1); WHITE BLOOD COUNT 14.08 K/uL (4.8-10.8)
[2016-11-16 08:11] VITALS: BP 136/78; PULSE 104; TEMP 37; O2SAT 94
[2016-11-16 08:34] LABS: BUN/CREATININE RATIO 15.1 (10-20); CALCIUM 8.4 mg/dl (8.5-10.1); CREATININE 0.45 mg/dl (0.60-1.40); POTASSIUM 3.2 mmol/L (3.5-5.1)
[2016-11-16 11:31] VITALS: PULSE 86; O2SAT 95
[2016-11-16] MEDS: POLYETHYLENE (MIRALAX) 17 GM PACK PO PRN (14:00)
[2016-11-16] MEDS: IPRATROPIUM BROMIDE/ALBUTEROL respimat INH INH SCH ×3 (14:41→19:37)
[2016-11-16 15:39] VITALS: BP 135/77; PULSE 95; TEMP 36.8; O2SAT 96
[2016-11-16] MEDS: ENOXAPARIN 40 MG/0.4 ML SYR SQ SCH (21:51)
[2016-11-16] MEDS: DOCUSATE SODIUM 100 MG CAP PO SCH (21:51)
[2016-11-16] MEDS: AZITHROMYCIN IV 500 MG in DEXTROSE 5% 250ML 250 ML IV SCH (21:53)
[2016-11-17] VITALS: O2SAT 91
[2016-11-17] MEDS: CEFTRIAXONE SOD INJ 1,000 MG in DEXTROSE 5% 50ML 50 ML IV SCH (00:10)
[2016-11-17 00:17] VITALS: BP 162/81; PULSE 91; TEMP 36.8; O2SAT 91
[2016-11-17] MEDS ORDERED: HALOPERIDOL LACTATE 5 MG/ML 1 ML VIAL IM STA (00:56)
[2016-11-17] MEDS ORDERED: HALOPERIDOL LACTATE 5 MG/ML 1 ML VIAL ONE (00:58)
[2016-11-17] MEDS: LEVOTHYROXINE 100 MCG TAB PO SCH (06:30)
[2016-11-17] MEDS: POTASSIUM CHLORIDE INJ 40 MEQ in SODIUM CHLORIDE 0.9% 1000ML 1,000 ML IV SCH (06:48)
[2016-11-17 07:28] VITALS: BP 156/73; PULSE 96; TEMP 36.6; O2SAT 93
[2016-11-17] MEDS: CHOLECALCIFEROL 1000 INTER.UNIT TAB PO SCH (09:03)
[2016-11-17] MEDS: BUDESONIDE/FORMOTEROL FUMARATE 160/4.5 60 PUFFS/INHALER INH SCH ×2 (09:03→19:32)
[2016-11-17] MEDS: TAMSULOSIN HCL 0.4 MG CAP PO SCH (09:03)
[2016-11-17] MEDS: IPRATROPIUM BROMIDE/ALBUTEROL respimat INH INH SCH ×4 (09:03→19:32)
[2016-11-17] MEDS: THEOPHYLLINE 400MG CONTROLLED REL TAB PO SCH ×2 (09:03→19:32)
--- NOTE | 2016-11-17 14:50 | Hospitalist Progress Note ---
Hospitalist Progress Note Date of Service Nov 17, 2016. Subjective Pt evaluation today including: conversation w/ patient, physical exam, chart review, lab review, review of studies, review of inpatient medication list Patient had no acute issues overnight Constitutional: No fever Eyes: No worsening of vision ENT: No hearing loss Respiratory: No cough, No shortness of breath Cardiovascular: No chest pain Abdomen: No pain, No vomiting Male : No dysuria, No incontinence Neurologic: No memory loss Psychiatric: No depression symptoms Endo: No fatigue Skin: No itch, No rash Medications Current Inpatient Medications Medications (Trade) Dose Ordered Sig/Raciel Route Start Time Stop Time Status Last Admin Dose Admin Acetaminophen (Tylenol Tab) 650 mg Q4H PRN PO 11/13/16 17:30 12/13/16 17:29 Al Hydrox/Mg Hydrox/Simethicone (Maalox Max Susp) 15 ml Q4H PRN PO 11/13/16 17:30 12/13/16 17:29 Magnesium Hydroxide (Milk Of Magnesia Susp) 30 ml Q6H PRN PO 11/13/16 17:30 12/13/16 17:29 Polyethylene (Miralax Powder Packet) 17 gm DAILY PRN PO 11/13/16 17:30 12/13/16 17:29 11/16/16 14:00 17 GM Ondansetron HCl 4 mg 4 mg Q6H PRN IV 11/13/16 17:30 12/13/16 17:29 Azithromycin/ Dextrose (Zithromax IV/D5 250ml) 255 ml @ 170 mls/hr Q24H IV 11/13/16 22:00 11/20/16 21:59 11/16/16 21:53 170 MLS/HR Budesonide/ Formoterol Fumarate (Symbicort 160/ 4.5 Inh) 2 puffs BID INH 11/13/16 21:00 12/13/16 20:59 11/17/16 09:03 2 PUFFS Cholecalciferol (Vitamin D Tab) 1,000 inter.unit DAILY PO 11/14/16 09:00 12/14/16 08:59 11/17/16 09:03 1,000 INTER.UNIT Docusate Sodium (coLACE CAP) 100 mg QPM PO 11/13/16 21:00 12/13/16 20:59 11/16/16 21:51 100 MG Levothyroxine Sodium (Synthroid Tab) 100 mcg DAILYBB PO 11/14/16 06:30 12/14/16 06:59 11/17/16 06:30 100 MCG Theophylline (Uniphyl Controlled Rel 24hr Tab) 400 mg BID PO 11/13/16 21:00 12/13/16 20:59 11/17/16 09:03 400 MG Tamsulosin HCl (Flomax Cap) 0.4 mg QAM PO 11/14/16 09:00 12/14/16 08:59 11/17/16 09:03 0.4 MG Enoxaparin Sodium 40 mg 40 mg Q24H SQ 11/14/16 22:00 12/14/16 21:59 11/16/16 21:51 40 MG Ceftriaxone Sodium 1000 mg/ Dextrose 60 ml @ 100 mls/hr DAILY@2300 IV 11/13/16 23:00 11/20/16 22:59 11/17/16 00:10 100 MLS/HR Potassium Chloride/Sodium Chloride (KCl Inj/Nss 1000ml) 1,020 ml @ 80 mls/hr [id number] IV 11/15/16 13:30 12/15/16 12:59 11/17/16 06:48 80 MLS/HR Albuterol/ Ipratropium (Combivent Respimat Inh) 1 puffs QID INH 11/16/16 15:00 12/16/16 14:59 11/17/16 12:22 1 PUFFS Objective Vital Signs Date Time Temp Pulse Resp B/P Pulse Ox O2 Delivery O2 Flow Rate FiO2 11/17/16 08:25 Room Air 11/17/16 07:28 36.6 96 18 156/73 93 Room Air 11/17/16 00:17 36.8 91 20 162/81 91 Room Air 11/17/16 00:00 91 Room Air 11/16/16 16:30 Room Air 11/16/16 15:39 36.8 95 18 135/77 96 Room Air Physical Exam General Appearance: WD/WN, no apparent distress, + cachetic Eyes: normal inspection ENT: normal ENT inspection Neck: supple, no adenopathy Respiratory/Chest: chest non-tender, lungs clear Cardiovascular: regular rate, rhythm, no edema Abdomen: normal bowel sounds, non tender, soft Extremities: normal range of motion, non-tender Neurologic/Psychiatric: choker hooker II-XII nml as tested, no motor/sensory deficits, alert, oriented x 3 Skin: normal color, warm/dry, no rash Lymphatic: no adenopathy Assessment and Plan 89 M with history of copd presents with acute on chronic respiratory failure and pneumonia, suspicious for mass Community Acquired Pneumonia - seems to be improving - d/c ceftriaxone and azithromycin - change to levaquin 750 mg Day #/ Dementia with intermittent delirium - suspect hospital induced - required haldol overnight - resume haldol q4hr prn Acute hypoxic Respiratory failure - 2/2 to pneumonia - titrate O2 prn Metabolic Encephalopathy - resolved COPD - Duonebs and Symbicort, and O2 per protocol. Hypothyroidism - Levo 100mcg daily. BPH -Tamsulosin 0.4mg QAM. DVT Ppx: Lovenox SQ daily CODE STATUS: FULL CODE Disposition: Patient to go to longterm on d/c as patient from home alone and unable to care for himself
[2016-11-17 15:18] VITALS: BP 105/64; PULSE 107; O2SAT 94
[2016-11-17 16:00] VITALS: BP 166/74; PULSE 103; TEMP 36.8; O2SAT 94
[2016-11-17] MEDS ORDERED: HALOPERIDOL LACTATE 5 MG/ML 1 ML VIAL IM ONE (16:00)
[2016-11-17] MEDS ORDERED: HALOPERIDOL LACTATE 5 MG/ML 1 ML VIAL IM PRN (16:15)
[2016-11-17] MEDS: LEVOFLOXACIN 750 MG TAB PO SCH (17:59)
[2016-11-17] MEDS: DOCUSATE SODIUM 100 MG CAP PO SCH (19:34)
[2016-11-17 19:45] VITALS: O2SAT 94
[2016-11-17] MEDS: ENOXAPARIN 40 MG/0.4 ML SYR SQ SCH (22:08)
[2016-11-18] VITALS: BP 155/67; PULSE 91; TEMP 36.5; O2SAT 95
[2016-11-18 00:46] VITALS: O2SAT 94
[2016-11-18] MEDS: LEVOTHYROXINE 100 MCG TAB PO SCH (06:08)
[2016-11-18 07:49] VITALS: BP 153/73; PULSE 92; TEMP 36.5; O2SAT 95
[2016-11-18] MEDS: IPRATROPIUM BROMIDE/ALBUTEROL respimat INH INH SCH ×4 (08:18→21:31)
[2016-11-18] MEDS: CHOLECALCIFEROL 1000 INTER.UNIT TAB PO SCH (08:18)
[2016-11-18] MEDS: TAMSULOSIN HCL 0.4 MG CAP PO SCH (08:18)
[2016-11-18] MEDS: THEOPHYLLINE 400MG CONTROLLED REL TAB PO SCH ×2 (08:19→21:32)
[2016-11-18] MEDS: BUDESONIDE/FORMOTEROL FUMARATE 160/4.5 60 PUFFS/INHALER INH SCH ×2 (08:19→21:31)
[2016-11-18 09:15] LABS: HEMATOCRIT 36.2 % (42-52); MEAN CELL VOLUME 89.8 fL (80-100); MEAN CORPUSCULAR HEMOGLOBIN 30.8 pg (25-34); MEAN CORPUSCULAR HGB CONC 34.3 g/dl (32-36); MEAN PLATELET VOLUME 10.8 fL (7.4-10.4); PLATELET COUNT 470 K/uL (130-400); RED BLOOD COUNT 4.03 M/uL (4.7-6.1); WHITE BLOOD COUNT 12.12 K/uL (4.8-10.8)
[2016-11-18 09:49] LABS: BUN/CREATININE RATIO 15.7 (10-20); CALCIUM 9.3 mg/dl (8.5-10.1); CREATININE 0.6 mg/dl (0.60-1.40); POTASSIUM 3.6 mmol/L (3.5-5.1)
[2016-11-18 10:31] VITALS: O2SAT 94
[2016-11-18 15:08] VITALS: BP 119/91; PULSE 101; TEMP 36.4; O2SAT 97
[2016-11-18] MEDS: LEVOFLOXACIN 750 MG TAB PO SCH (16:18)
--- NOTE | 2016-11-18 18:50 | Hospitalist Progress Note ---
Hospitalist Progress Note Date of Service Nov 18, 2016. Subjective Pt evaluation today including: conversation w/ patient, physical exam, chart review, lab review, review of studies, review of inpatient medication list Patient had no acute issues overnight Constitutional: No fever Eyes: No worsening of vision ENT: No hearing loss, No nasal symptoms Respiratory: No cough, No shortness of breath Cardiovascular: No PND, No chest pain, No edema Abdomen: No diarrhea, No pain, No vomiting Musculoskeletal: No joint pain Male : No dysuria Neurologic: No memory loss Psychiatric: No depression symptoms Endo: No fatigue Skin: No rash Objective Vital Signs Date Time Temp Pulse Resp B/P Pulse Ox O2 Delivery O2 Flow Rate FiO2 11/18/16 16:00 Room Air 11/18/16 15:08 36.4 101 17 119/91 97 Room Air 11/18/16 10:31 94 Room Air 11/18/16 07:49 36.5 92 17 153/73 95 Room Air 11/18/16 00:46 94 Room Air 11/18/16 00:00 36.5 91 18 155/67 95 Room Air 11/17/16 19:45 94 Room Air Physical Exam General Appearance: WD/WN, no apparent distress Eyes: normal inspection ENT: normal ENT inspection Neck: supple, no adenopathy Respiratory/Chest: chest non-tender, lungs clear Cardiovascular: regular rate, rhythm, no edema, no gallop Abdomen: normal bowel sounds, non tender, soft Extremities: normal range of motion, non-tender, normal inspection Neurologic/Psychiatric: evening anchor II-XII nml as tested, no motor/sensory deficits, alert Skin: normal color Laboratory Results Last 24 Hours Test 11/18/16 08:40 White Blood Count 12.12 K/uL Red Blood Count 4.03 M/uL Hemoglobin 12.4 g/dL Hematocrit 36.2 % Mean Corpuscular Volume 89.8 fL Mean Corpuscular Hemoglobin 30.8 pg Mean Corpuscular Hemoglobin Concent 34.3 g/dl RDW Standard Deviation 44.5 fL RDW Coefficient of Variation 13.6 % Platelet Count 470 K/uL Mean Platelet Volume 10.8 fL Sodium Level 134 mmol/L Potassium Level 3.6 mmol/L Chloride Level 100 mmol/L Carbon Dioxide Level 23 mmol/L Anion Gap 11.0 mmol/L Blood Urea Nitrogen 9 mg/dl Creatinine 0.60 mg/dl Est Creatinine Clear Calc Drug Dose 69.5 ml/min Estimated GFR () 103.3 Estimated GFR (Non- 89.1 BUN/Creatinine Ratio 15.7 Random Glucose 83 mg/dl Calcium Level 9.3 mg/dl Assessment and Plan 89 M with history of copd presents with acute on chronic respiratory failure and pneumonia, suspicious for mass Community Acquired Pneumonia - seems to be improving - change to levaquin 750 mg Day #02/28 Dementia with intermittent delirium - suspect hospital induced - no haldol req overnight - resume haldol q4hr prn Acute hypoxic Respiratory failure - 2/2 to pneumonia - titrate O2 prn Metabolic Encephalopathy - resolved COPD - Duonebs and Symbicort, and O2 per protocol. Hypothyroidism - Levo 100mcg daily. BPH -Tamsulosin 0.4mg QAM. DVT Ppx: Lovenox SQ daily CODE STATUS: FULL CODE Disposition: Patient to go to [facility]. Medically ready however no bed available
[2016-11-18] MEDS: DOCUSATE SODIUM 100 MG CAP PO SCH (21:27)
[2016-11-18] MEDS: ENOXAPARIN 40 MG/0.4 ML SYR SQ SCH (21:28)
[2016-11-19 01:03] VITALS: BP 130/86; PULSE 114; TEMP 36.8; O2SAT 92
[2016-11-19 05:36] VITALS: BP 136/76; PULSE 96; TEMP 36.7; O2SAT 96
[2016-11-19 07:08] VITALS: BP 138/85; PULSE 79; TEMP 36.7; O2SAT 95
[2016-11-19 07:41] LABS: HEMATOCRIT 33.3 % (42-52); MEAN CELL VOLUME 89.3 fL (80-100); MEAN CORPUSCULAR HEMOGLOBIN 30.3 pg (25-34); MEAN CORPUSCULAR HGB CONC 33.9 g/dl (32-36); MEAN PLATELET VOLUME 10.4 fL (7.4-10.4); PLATELET COUNT 444 K/uL (130-400); RED BLOOD COUNT 3.73 M/uL (4.7-6.1); WHITE BLOOD COUNT 10.98 K/uL (4.8-10.8)
[2016-11-19] MEDS: LEVOTHYROXINE 100 MCG TAB PO SCH (08:27)
[2016-11-19] MEDS: IPRATROPIUM BROMIDE/ALBUTEROL respimat INH INH SCH ×4 (08:27→19:50)
[2016-11-19] MEDS: BUDESONIDE/FORMOTEROL FUMARATE 160/4.5 60 PUFFS/INHALER INH SCH ×2 (08:28→19:50)
[2016-11-19] MEDS: CHOLECALCIFEROL 1000 INTER.UNIT TAB PO SCH (08:28)
[2016-11-19] MEDS: TAMSULOSIN HCL 0.4 MG CAP PO SCH (08:28)
[2016-11-19] MEDS: THEOPHYLLINE 400MG CONTROLLED REL TAB PO SCH ×2 (08:28→19:51)
[2016-11-19] MEDS: POLYETHYLENE (MIRALAX) 17 GM PACK PO PRN (14:36)
[2016-11-19 14:39] VITALS: BP 118/68; PULSE 97; TEMP 36.6; O2SAT 94
[2016-11-19 16:00] VITALS: O2SAT 94
--- NOTE | 2016-11-19 16:04 | Hospitalist Progress Note ---
Hospitalist Progress Note Date of Service Nov 19, 2016. Subjective Pt evaluation today including: conversation w/ patient, physical exam, chart review, lab review, review of studies, review of inpatient medication list Patient had a mechanical fall overnight while attempting to get out of bed Per nursing there was no head trauma, pt suffered abrasion on elbow. no bruising or purpura noted Constitutional: No fever Eyes: No worsening of vision ENT: No hearing loss Respiratory: No cough, No shortness of breath Cardiovascular: No chest pain Abdomen: No constipation, No pain, No vomiting Musculoskeletal: No joint pain Male : No dysuria Neurologic: No memory loss Psychiatric: No depression symptoms Endo: No fatigue Medications Current Inpatient Medications Medications (Trade) Dose Ordered Sig/Raciel Route Start Time Stop Time Status Last Admin Dose Admin Acetaminophen (Tylenol Tab) 650 mg Q4H PRN PO 11/13/16 17:30 12/13/16 17:29 Al Hydrox/Mg Hydrox/Simethicone (Maalox Max Susp) 15 ml Q4H PRN PO 11/13/16 17:30 12/13/16 17:29 Magnesium Hydroxide (Milk Of Magnesia Susp) 30 ml Q6H PRN PO 11/13/16 17:30 12/13/16 17:29 Polyethylene (Miralax Powder Packet) 17 gm DAILY PRN PO 11/13/16 17:30 12/13/16 17:29 11/19/16 14:36 17 GM Ondansetron HCl (Zofran Inj) 4 mg Q6H PRN IV 11/13/16 17:30 12/13/16 17:29 Budesonide/ Formoterol Fumarate (Symbicort 160/ 4.5 Inh) 2 puffs BID INH 11/13/16 21:00 12/13/16 20:59 11/19/16 08:28 2 PUFFS Cholecalciferol (Vitamin D Tab) 1,000 inter.unit DAILY PO 11/14/16 09:00 12/14/16 08:59 11/19/16 08:28 1,000 INTER.UNIT Docusate Sodium (coLACE CAP) 100 mg QPM PO 11/13/16 21:00 12/13/16 20:59 11/18/16 21:27 100 MG Levothyroxine Sodium (Synthroid Tab) 100 mcg DAILYBB PO 11/14/16 06:30 12/14/16 06:59 11/19/16 08:27 100 MCG Theophylline (Uniphyl Controlled Rel 24hr Tab) 400 mg BID PO 11/13/16 21:00 12/13/16 20:59 11/19/16 08:28 400 MG Tamsulosin HCl (Flomax Cap) 0.4 mg QAM PO 11/14/16 09:00 12/14/16 08:59 11/19/16 08:28 0.4 MG Enoxaparin Sodium (Lovenox Inj) 40 mg Q24H SQ 11/14/16 22:00 12/14/16 21:59 11/18/16 21:28 40 MG Albuterol/ Ipratropium (Combivent Respimat Inh) 1 puffs QID INH 11/16/16 15:00 12/16/16 14:59 11/19/16 12:14 1 PUFFS Levofloxacin (Levaquin Tab) 750 mg DAILY@1600 PO 11/17/16 16:00 11/22/16 23:59 11/18/16 16:18 750 MG Haloperidol Lactate (Haldol Inj) 5 mg Q4 PRN IM 11/17/16 16:15 12/17/16 16:14 Objective Vital Signs Date Time Temp Pulse Resp B/P Pulse Ox O2 Delivery O2 Flow Rate FiO2 11/19/16 14:39 36.6 97 18 118/68 94 Room Air 11/19/16 10:22 Room Air 11/19/16 07:08 36.7 79 18 138/85 95 Room Air 11/19/16 05:36 36.7 96 20 136/76 96 Room Air 11/19/16 01:03 36.8 114 18 130/86 92 Room Air 11/19/16 00:00 Room Air 11/18/16 20:00 Room Air 11/18/16 16:00 Room Air Physical Exam General Appearance: WD/WN, no apparent distress Eyes: normal inspection ENT: normal ENT inspection Neck: supple, no adenopathy Respiratory/Chest: chest non-tender, lungs clear Cardiovascular: regular rate, rhythm, no edema Abdomen: normal bowel sounds, non tender, soft Extremities: normal range of motion, non-tender 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, no motor/sensory deficits, alert, oriented x 3 Lymphatic: no adenopathy Laboratory Results Last 24 Hours Test 11/19/16 07:01 White Blood Count 10.98 K/uL Red Blood Count 3.73 M/uL Hemoglobin 11.3 g/dL Hematocrit 33.3 % Mean Corpuscular Volume 89.3 fL Mean Corpuscular Hemoglobin 30.3 pg Mean Corpuscular Hemoglobin Concent 33.9 g/dl RDW Standard Deviation 44.3 fL RDW Coefficient of Variation 13.6 % Platelet Count 444 K/uL Mean Platelet Volume 10.4 fL Assessment and Plan 89 M with history of copd presents with acute on chronic respiratory failure and pneumonia, suspicious for mass Community Acquired Pneumonia - seems to be improving - change to levaquin 750 mg Day #03/30 Mechanical Fall - no head trauma, patient asymptomatic - fall precautions Dementia with intermittent delirium - suspect hospital induced - no haldol req overnight - continue haldol q4hr prn Acute hypoxic Respiratory failure - 2/2 to pneumonia - titrate O2 prn Metabolic Encephalopathy - resolved COPD - Duonebs and Symbicort, and O2 per protocol. Hypothyroidism - Levo 100mcg daily. BPH -Tamsulosin 0.4mg QAM. DVT Ppx: Lovenox SQ daily CODE STATUS: FULL CODE Disposition: Patient to go to [facility]. Medically ready however no bed available, have traded
[2016-11-19] MEDS: LEVOFLOXACIN 750 MG TAB PO SCH (16:16)
[2016-11-19] MEDS: DOCUSATE SODIUM 100 MG CAP PO SCH (19:51)
[2016-11-19] MEDS: ENOXAPARIN 40 MG/0.4 ML SYR SQ SCH (21:21)
[2016-11-19 23:53] VITALS: BP 104/71; PULSE 91; TEMP 36.7; O2SAT 95
[2016-11-20] MEDS: LEVOTHYROXINE 100 MCG TAB PO SCH (05:49)
[2016-11-20 07:06] VITALS: BP 144/78; PULSE 89; TEMP 36.7; O2SAT 94
[2016-11-20 08:32] LABS: BUN/CREATININE RATIO 20.8 (10-20); CALCIUM 8.6 mg/dl (8.5-10.1); CREATININE 0.59 mg/dl (0.60-1.40); POTASSIUM 3.4 mmol/L (3.5-5.1)
[2016-11-20] MEDS: IPRATROPIUM BROMIDE/ALBUTEROL respimat INH INH SCH ×4 (09:08→19:39)
[2016-11-20] MEDS: BUDESONIDE/FORMOTEROL FUMARATE 160/4.5 60 PUFFS/INHALER INH SCH ×2 (09:09→19:39)
[2016-11-20] MEDS: TAMSULOSIN HCL 0.4 MG CAP PO SCH (09:09)
[2016-11-20] MEDS: CHOLECALCIFEROL 1000 INTER.UNIT TAB PO SCH (09:09)
[2016-11-20] MEDS: THEOPHYLLINE 400MG CONTROLLED REL TAB PO SCH ×2 (09:09→19:40)
[2016-11-20 15:17] VITALS: BP 105/68; PULSE 91; TEMP 36.6; O2SAT 94
--- NOTE | 2016-11-20 15:23 | Hospitalist Progress Note ---
Hospitalist Progress Note Date of Service Nov 20, 2016. Subjective Pt evaluation today including: conversation w/ patient, physical exam, chart review, lab review, review of studies, review of inpatient medication list Patient had no acute issues overnight Constitutional: No fever Eyes: No worsening of vision ENT: No hearing loss Respiratory: No cough, No shortness of breath Cardiovascular: No chest pain Abdomen: No constipation, No diarrhea, No pain, No vomiting Musculoskeletal: No joint pain Male : No dysuria Neurologic: No memory loss Psychiatric: No depression symptoms Medications Current Inpatient Medications Medications (Trade) Dose Ordered Sig/Raciel Route Start Time Stop Time Status Last Admin Dose Admin Acetaminophen (Tylenol Tab) 650 mg Q4H PRN PO 11/13/16 17:30 12/13/16 17:29 Al Hydrox/Mg Hydrox/Simethicone (Maalox Max Susp) 15 ml Q4H PRN PO 11/13/16 17:30 12/13/16 17:29 Magnesium Hydroxide (Milk Of Magnesia Susp) 30 ml Q6H PRN PO 11/13/16 17:30 12/13/16 17:29 Polyethylene (Miralax Powder Packet) 17 gm DAILY PRN PO 11/13/16 17:30 12/13/16 17:29 11/19/16 14:36 17 GM Ondansetron HCl (Zofran Inj) 4 mg Q6H PRN IV 11/13/16 17:30 12/13/16 17:29 Budesonide/ Formoterol Fumarate (Symbicort 160/ 4.5 Inh) 2 puffs BID INH 11/13/16 21:00 12/13/16 20:59 11/20/16 09:09 2 PUFFS Cholecalciferol (Vitamin D Tab) 1,000 inter.unit DAILY PO 11/14/16 09:00 12/14/16 08:59 11/20/16 09:09 1,000 INTER.UNIT Docusate Sodium (coLACE CAP) 100 mg QPM PO 11/13/16 21:00 12/13/16 20:59 11/19/16 19:51 100 MG Levothyroxine Sodium (Synthroid Tab) 100 mcg DAILYBB PO 11/14/16 06:30 12/14/16 06:59 11/20/16 05:49 100 MCG Theophylline (Uniphyl Controlled Rel 24hr Tab) 400 mg BID PO 11/13/16 21:00 12/13/16 20:59 11/20/16 09:09 400 MG Tamsulosin HCl (Flomax Cap) 0.4 mg QAM PO 11/14/16 09:00 12/14/16 08:59 11/20/16 09:09 0.4 MG Enoxaparin Sodium (Lovenox Inj) 40 mg Q24H SQ 11/14/16 22:00 12/14/16 21:59 11/19/16 21:21 40 MG Albuterol/ Ipratropium (Combivent Respimat Inh) 1 puffs QID INH 11/16/16 15:00 12/16/16 14:59 11/20/16 12:24 1 PUFFS Levofloxacin (Levaquin Tab) 750 mg DAILY@1600 PO 11/17/16 16:00 11/22/16 23:59 11/19/16 16:16 750 MG Haloperidol Lactate (Haldol Inj) 5 mg Q4 PRN IM 11/17/16 16:15 12/17/16 16:14 Objective Vital Signs Date Time Temp Pulse Resp B/P Pulse Ox O2 Delivery O2 Flow Rate FiO2 11/20/16 15:17 36.6 91 16 105/68 94 Room Air 11/20/16 08:02 Room Air 11/20/16 07:06 36.7 89 18 144/78 94 Room Air 11/20/16 00:00 Room Air 11/19/16 23:53 36.7 91 20 104/71 95 Room Air 11/19/16 16:00 94 Room Air Physical Exam General Appearance: WD/WN, no apparent distress Eyes: normal inspection ENT: normal ENT inspection Neck: supple Respiratory/Chest: chest non-tender, lungs clear Cardiovascular: regular rate, rhythm, no edema Abdomen: normal bowel sounds, non tender, soft Extremities: normal range of motion, non-tender 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, no motor/sensory deficits, alert, oriented x 3 Skin: normal color, warm/dry, no rash Lymphatic: no adenopathy Laboratory Results Last 24 Hours Test 11/20/16 07:28 Sodium Level 139 mmol/L Potassium Level 3.4 mmol/L Chloride Level 106 mmol/L Carbon Dioxide Level 24 mmol/L Anion Gap 9.0 mmol/L Blood Urea Nitrogen 12 mg/dl Creatinine 0.59 mg/dl Est Creatinine Clear Calc Drug Dose 70.7 ml/min Estimated GFR () 104.0 Estimated GFR (Non- 89.8 BUN/Creatinine Ratio 20.8 Random Glucose 81 mg/dl Calcium Level 8.6 mg/dl Assessment and Plan 89 M with history of copd presents with acute on chronic respiratory failure and pneumonia, suspicious for mass Community Acquired Pneumonia - seems to be improving - change to levaquin 750 mg Day #04/30 Mechanical Fall - fall precautions Dementia with intermittent delirium - suspect hospital induced - no haldol req overnight - continue haldol q4hr prn Acute hypoxic Respiratory failure - 2/2 to pneumonia - titrate O2 prn Metabolic Encephalopathy - resolved COPD - Duonebs and Symbicort, and O2 per protocol. Hypothyroidism - Levo 100mcg daily. BPH -Tamsulosin 0.4mg QAM. DVT Ppx: Lovenox SQ daily CODE STATUS: FULL CODE Disposition: Patient to be d/c'ed to NH on 3.5 when they have a bed
[2016-11-20] MEDS: LEVOFLOXACIN 750 MG TAB PO SCH (15:56)
[2016-11-20 16:00] VITALS: O2SAT 94
[2016-11-20] MEDS: DOCUSATE SODIUM 100 MG CAP PO SCH (19:40)
[2016-11-20] MEDS: ENOXAPARIN 40 MG/0.4 ML SYR SQ SCH (22:04)
[2016-11-20 23:44] VITALS: BP 117/65; PULSE 74; TEMP 36.6; O2SAT 95
[2016-11-21] MEDS: LEVOTHYROXINE 100 MCG TAB PO SCH (06:41)
[2016-11-21 07:22] VITALS: BP 154/68; PULSE 75; TEMP 36.9; O2SAT 96
[2016-11-21] MEDS: BUDESONIDE/FORMOTEROL FUMARATE 160/4.5 60 PUFFS/INHALER INH SCH ×2 (09:12→19:39)
[2016-11-21] MEDS: CHOLECALCIFEROL 1000 INTER.UNIT TAB PO SCH (09:13)
[2016-11-21] MEDS: TAMSULOSIN HCL 0.4 MG CAP PO SCH (09:13)
[2016-11-21] MEDS: IPRATROPIUM BROMIDE/ALBUTEROL respimat INH INH SCH ×4 (09:13→19:39)
[2016-11-21] MEDS: THEOPHYLLINE 400MG CONTROLLED REL TAB PO SCH ×2 (09:13→19:40)
--- NOTE | 2016-11-21 12:34 | Hospitalist Progress Note ---
Hospitalist Progress Note Date of Service Nov 21, 2016. Subjective Pt evaluation today including: conversation w/ patient, physical exam, chart review, lab review, review of studies, review of inpatient medication list Patient had no acute issues overnight Constitutional: No fever Eyes: No worsening of vision ENT: No hearing loss Respiratory: No cough Cardiovascular: No chest pain Abdomen: No pain Musculoskeletal: No joint pain Objective Vital Signs Date Time Temp Pulse Resp B/P Pulse Ox O2 Delivery O2 Flow Rate FiO2 11/21/16 08:15 Room Air 11/21/16 07:22 36.9 75 18 154/68 96 Room Air 11/21/16 00:00 Room Air 11/20/16 23:44 36.6 74 16 117/65 95 11/20/16 16:00 94 Room Air 11/20/16 15:17 36.6 91 16 105/68 94 Room Air Physical Exam General Appearance: WD/WN, no apparent distress Eyes: normal inspection ENT: normal ENT inspection Neck: supple Respiratory/Chest: chest non-tender, lungs clear Cardiovascular: regular rate, rhythm, no edema Abdomen: normal bowel sounds, non tender, soft 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, no motor/sensory deficits, alert, + disoriented Skin: normal color, warm/dry, no rash Lymphatic: no adenopathy Assessment and Plan 89 M with history of copd presents with acute on chronic respiratory failure and pneumonia, suspicious for mass Community Acquired Pneumonia - seems to be improving - continue levaquin 750 mg Day #9 Mechanical Fall - fall precautions Dementia with intermittent delirium - suspect hospital induced - no haldol req overnight - continue haldol q4hr prn Acute hypoxic Respiratory failure - 2/2 to pneumonia - titrate O2 prn Metabolic Encephalopathy - resolved COPD - Duonebs and Symbicort, and O2 per protocol. Hypothyroidism - Levo 100mcg daily. BPH -Tamsulosin 0.4mg QAM. DVT Ppx: Lovenox SQ daily CODE STATUS: FULL CODE Disposition: Patient to be d/c'ed to NH on 3.5 when they have a bed
[2016-11-21 15:03] VITALS: BP 97/56; PULSE 83; TEMP 36.5; O2SAT 95
[2016-11-21] MEDS: LEVOFLOXACIN 750 MG TAB PO SCH (15:47)
[2016-11-21 16:00] VITALS: O2SAT 95
[2016-11-21] MEDS: DOCUSATE SODIUM 100 MG CAP PO SCH (19:40)
[2016-11-21] MEDS: ENOXAPARIN 40 MG/0.4 ML SYR SQ SCH (21:37)
[2016-11-21 23:20] VITALS: BP 123/80; PULSE 94; TEMP 36.4; O2SAT 94
[2016-11-22] MEDS: LEVOTHYROXINE 100 MCG TAB PO SCH (06:31)
[2016-11-22 06:59] LABS: BUN/CREATININE RATIO 20.3 (10-20); CALCIUM 8.3 mg/dl (8.5-10.1); CREATININE 0.77 mg/dl (0.60-1.40); POTASSIUM 3.5 mmol/L (3.5-5.1)
[2016-11-22 07:14] VITALS: BP 125/86; PULSE 86; TEMP 37.2; O2SAT 97
[2016-11-22] MEDS: TAMSULOSIN HCL 0.4 MG CAP PO SCH (08:26)
[2016-11-22] MEDS: BUDESONIDE/FORMOTEROL FUMARATE 160/4.5 60 PUFFS/INHALER INH SCH ×2 (08:26→20:41)
[2016-11-22] MEDS: IPRATROPIUM BROMIDE/ALBUTEROL respimat INH INH SCH ×4 (08:26→20:41)
[2016-11-22] MEDS: THEOPHYLLINE 400MG CONTROLLED REL TAB PO SCH ×2 (08:26→20:41)
[2016-11-22] MEDS: CHOLECALCIFEROL 1000 INTER.UNIT TAB PO SCH (08:27)
[2016-11-22 15:57] VITALS: BP 115/75; PULSE 82; TEMP 36.8; O2SAT 98
[2016-11-22 16:15] VITALS: O2SAT 98
--- NOTE | 2016-11-22 16:54 | Hospitalist Progress Note ---
Hospitalist Progress Note Date of Service Nov 22, 2016. Subjective Pt evaluation today including: conversation w/ patient, physical exam, chart review, lab review, review of studies, review of inpatient medication list Patient had no acute issues overnight Constitutional: No fever Eyes: No worsening of vision ENT: No hearing loss, No nasal symptoms Respiratory: No cough, No shortness of breath Cardiovascular: No chest pain Abdomen: No constipation, No diarrhea, No pain, No vomiting Musculoskeletal: No joint pain Male : No dysuria Neurologic: No memory loss Psychiatric: No depression symptoms Heme: No abnormal bleeding/bruising Endo: No fatigue Skin: No rash Medications Current Inpatient Medications Medications (Trade) Dose Ordered Sig/Raciel Route Start Time Stop Time Status Last Admin Dose Admin Acetaminophen (Tylenol Tab) 650 mg Q4H PRN PO 11/13/16 17:30 12/13/16 17:29 Al Hydrox/Mg Hydrox/Simethicone (Maalox Max Susp) 15 ml Q4H PRN PO 11/13/16 17:30 12/13/16 17:29 Magnesium Hydroxide (Milk Of Magnesia Susp) 30 ml Q6H PRN PO 11/13/16 17:30 12/13/16 17:29 Polyethylene (Miralax Powder Packet) 17 gm DAILY PRN PO 11/13/16 17:30 12/13/16 17:29 11/19/16 14:36 17 GM Ondansetron HCl (Zofran Inj) 4 mg Q6H PRN IV 11/13/16 17:30 12/13/16 17:29 Budesonide/ Formoterol Fumarate (Symbicort 160/ 4.5 Inh) 2 puffs BID INH 11/13/16 21:00 12/13/16 20:59 11/22/16 08:26 2 PUFFS Cholecalciferol (Vitamin D Tab) 1,000 inter.unit DAILY PO 11/14/16 09:00 12/14/16 08:59 11/22/16 08:27 1,000 INTER.UNIT Docusate Sodium (coLACE CAP) 100 mg QPM PO 11/13/16 21:00 12/13/16 20:59 11/21/16 19:40 100 MG Levothyroxine Sodium (Synthroid Tab) 100 mcg DAILYBB PO 11/14/16 06:30 12/14/16 06:59 11/22/16 06:31 100 MCG Theophylline (Uniphyl Controlled Rel 24hr Tab) 400 mg BID PO 11/13/16 21:00 12/13/16 20:59 11/22/16 08:26 400 MG Tamsulosin HCl (Flomax Cap) 0.4 mg QAM PO 11/14/16 09:00 12/14/16 08:59 11/22/16 08:26 0.4 MG Enoxaparin Sodium (Lovenox Inj) 40 mg Q24H SQ 11/14/16 22:00 12/14/16 21:59 11/21/16 21:37 40 MG Albuterol/ Ipratropium (Combivent Respimat Inh) 1 puffs QID INH 11/16/16 15:00 12/16/16 14:59 11/22/16 12:12 1 PUFFS Levofloxacin (Levaquin Tab) 750 mg DAILY@1600 PO 11/17/16 16:00 11/22/16 23:59 11/21/16 15:47 750 MG Haloperidol Lactate (Haldol Inj) 5 mg Q4 PRN IM 11/17/16 16:15 12/17/16 16:14 Objective Vital Signs Date Time Temp Pulse Resp B/P Pulse Ox O2 Delivery O2 Flow Rate FiO2 11/22/16 15:57 36.8 82 16 115/75 98 Room Air 11/22/16 08:00 Room Air 11/22/16 07:14 37.2 86 24 125/86 97 11/22/16 00:00 Room Air 11/21/16 23:20 36.4 94 20 123/80 94 Room Air Physical Exam General Appearance: WD/WN Eyes: normal inspection ENT: normal ENT inspection Neck: supple, no adenopathy Respiratory/Chest: chest non-tender, lungs clear Cardiovascular: regular rate, rhythm, no edema Abdomen: normal bowel sounds, non tender, soft Extremities: normal range of motion, non-tender 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, no motor/sensory deficits, alert, oriented x 3 Skin: normal color, warm/dry Lymphatic: no adenopathy Laboratory Results Last 24 Hours Test 11/22/16 05:56 Sodium Level 139 mmol/L Potassium Level 3.5 mmol/L Chloride Level 105 mmol/L Carbon Dioxide Level 26 mmol/L Anion Gap 8.0 mmol/L Blood Urea Nitrogen 16 mg/dl Creatinine 0.77 mg/dl Est Creatinine Clear Calc Drug Dose 54.2 ml/min Estimated GFR () 93.2 Estimated GFR (Non- 80.5 BUN/Creatinine Ratio 20.3 Random Glucose 82 mg/dl Calcium Level 8.3 mg/dl Assessment and Plan 89 M with history of copd presents with acute on chronic respiratory failure and pneumonia, suspicious for mass Community Acquired Pneumonia - seems to be improving - continue levaquin 750 mg Day #06/30 Mechanical Fall - fall precautions Dementia with intermittent delirium - suspect hospital induced - no haldol req overnight - continue haldol q4hr prn Acute hypoxic Respiratory failure - 2/2 to pneumonia - titrate O2 prn Metabolic Encephalopathy - resolved COPD - Duonebs and Symbicort, and O2 per protocol. Hypothyroidism - Levo 100mcg daily. BPH -Tamsulosin 0.4mg QAM. DVT Ppx: Lovenox SQ daily CODE STATUS: FULL CODE Disposition: anticipate d/c to SNF tommorrow
[2016-11-22] MEDS: LEVOFLOXACIN 750 MG TAB PO SCH (17:00)
[2016-11-22] MEDS: ENOXAPARIN 40 MG/0.4 ML SYR SQ SCH (20:42)
[2016-11-22] MEDS: DOCUSATE SODIUM 100 MG CAP PO SCH (20:42)
[2016-11-22 23:42] VITALS: BP 134/74; PULSE 88; TEMP 36.9; O2SAT 96
[2016-11-23] MEDS: LEVOTHYROXINE 100 MCG TAB PO SCH (06:35)
[2016-11-23 07:19] VITALS: BP_SYST 134; BP_SYST 145; BP_DIAS 63; BP_DIAS 75; PULSE 72; TEMP 36.7; O2SAT 97
--- NOTE | 2016-11-23 08:39 | Discharge Instructions ---
Discharge Instructions Admission Admission Date: Nov 13, 2016 at 20:33 Admission Diagnosis: Confusion, Pneumonia, Sepsis. Discharge Care Plan - Problem: Medical Problems: Pneumonia Sepsis Encephalopathy Care Plan - Goal(s): Decrease discomfort, Improve function Care Plan - Instructions: Activity Recommendations: no limitations Recommended Home Diet: Dental - Chopped Foods, Regular Provider Instructions: You were admitted to the hospital for confusion. You were found to have a pneumonia with sepsis. After days of IV antibtiocs your confusion and sepsis resolved. You completed 10 days of antibiotics while in the hospital VTE Core Measure Inpt VTE Proph given/why not?: Enoxaparin (Lovenox)[facility] Recommendations: Call your doctor if: * Temperature above 101 degrees * Pain not relieved by pain medicine ordered * There is increased drainage or redness from any incision * You have any unanswered questions or concerns. Your Doctors Instructions noted above were prepared by provider Fadia Dumas.
[2016-11-23] MEDS: IPRATROPIUM BROMIDE/ALBUTEROL respimat INH INH SCH (08:42)
[2016-11-23] MEDS: THEOPHYLLINE 400MG CONTROLLED REL TAB PO SCH (08:42)
[2016-11-23] MEDS: CHOLECALCIFEROL 1000 INTER.UNIT TAB PO SCH (08:42)
[2016-11-23] MEDS: BUDESONIDE/FORMOTEROL FUMARATE 160/4.5 60 PUFFS/INHALER INH SCH (08:42)
[2016-11-23] MEDS: TAMSULOSIN HCL 0.4 MG CAP PO SCH (08:42)
--- NOTE | 2016-11-23 08:44 | Discharge Summary ---
Discharge Summary Date of Service Nov 23, 2016. Discharge Summary Admission Date: Nov 13, 2016 at 20:33 Discharge Date: Nov 23, 2016 Discharge Disposition: Rehab Principal Diagnosis: Pneumonia/Sepsis Problems/Secondary Diagnoses: COPD BPH Medication Reconciliation Continued Medications: B-Complex W/ Folic Acid (Super B Complex Maxi) 1 Tab Tab 1 TAB PO DAILY Budesonide/Formoterol Fumarate (Symbicort 160/4.5 Inhaler) 120 Puffs/ Aero 1 PUFF INH BID, #10 Cholecalciferol (Vitamin D 1000 Unit) 1,000 Unit Cap 1000 INTER.UNIT PO DAILY, CAP Docusate Sodium (Colace) 100 Mg Cap 1 CAP PO QPM for 30 Days, CAP Fish Oil ([place]-3) 1 Ea Cap 1 CAP PO DAILY, CAP Fluticasone Propionate (Fluticasone Propionate) 120 Sprays/6000 Mcg Inha 1 SPRAY GE DAILY, #32 Levothyroxine Sodium (Synthroid) 100 Mcg Tab 100 MCG PO DAILY, #90 Multivitamins/Minerals (Mvi With Minerals) Tab 1 TAB PO DAILY, TAB Tamsulosin HCl (Tamsulosin HCl) 0.4 Mg Cap 4 MG PO DAILY, #90 Theophylline Cont Rel (Uniphyl Controlled Rel) 400 Mg Tabcr 400 MG PO BID, #180 Discharge Exam Review of Systems: Constitutional: No fever Respiratory: No cough, No shortness of breath Cardiovascular: No chest pain, No edema Musculoskeletal: No joint pain Physical Exam: General Appearance: WD/WN, no apparent distress Eyes: normal inspection ENT: normal ENT inspection Neck: supple, no adenopathy Respiratory/Chest: chest non-tender, lungs clear Cardiovascular: regular rate, rhythm, no edema Abdomen / GI: normal bowel sounds, non tender, soft Extremities: normal inspection 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 Pul mass on admission CT - family is aware - given age of patient treatment options would be limited - recommend recheck CT chest in 2-4 weeks Mechanical Fall - fall precautions - no signs of head trauma Dementia with intermittent delirium - most likely due to sundowning - suspect hospital induced - haldol required 1 time during hospital stay Acute hypoxic Respiratory failure - 2/2 to pneumonia -resolved Metabolic Encephalopathy - resolved with antibiotic COPD - Duonebs and Symbicort, and O2 per protocol. Hypothyroidism - Levo 100mcg daily. BPH -Tamsulosin 0.4mg QAM. DVT Ppx: Lovenox SQ daily CODE STATUS: FULL CODE Disposition: anticipate d/c to SNF tommorrow Total Time Spent: Less than 30 minutes This includes examination of the patient, discharge planning, medication reconciliation, and communication with other providers. Discharge Instructions Please refer to the electronic Patient Visit Report (Discharge Instructions) for additional information.
[2016-11-23 09:58] VITALS: BP 145/63; PULSE 72; TEMP 36.7; O2SAT 97
== END 2016-11-23 12:15 | DRG 871 ==
LOC: ENRESERVTM → ENRESERVDT → C.EDB 14:16 → C.MED 20:33 → C.MS4W 11-14 21:35
PROVIDERS: ADMIT Family Medicine; ATTEND Internal Medicine
DX: A41.9 Sepsis, unspecified organism (principal); J18.9 Pneumonia, unspecified organism; J96.21 Acute and chronic respiratory failure with hypoxia; G93.41 Metabolic encephalopathy; J44.0 Chronic obstructive pulmonary disease with (acute) lower respiratory infection; J45.909 Unspecified asthma, uncomplicated; Z87.01 Personal history of pneumonia (recurrent); Z79.899 Other long term (current) drug therapy; E87.6 Hypokalemia; N40.0 Benign prostatic hyperplasia without lower urinary tract symptoms; E03.9 Hypothyroidism, unspecified; R91.8 Other nonspecific abnormal finding of lung field; F03.90 Unspecified dementia, unspecified severity, without behavioral disturbance, psychotic disturbance, mood disturbance, and anxiety